=== PATIENT | male | born 1980 | race African-American/Black ===

== ENCOUNTER 2017-03-17 13:56 | Emergency (ER) | payer OTHER ==
[~2017-03-17] VITALS: Ht 180.3 cm; Wt 86.2 kg
[2017-03-17] VITALS (15 sets, daily range): BP systolic 120–130; BP diastolic 60–76
[2017-03-17] MEDS ORDERED: Haloperidol 5mg/ml Inj IM ONE (14:15)
[2017-03-17] MEDS ORDERED: LORazepam Inj 2mg/ml 1ml IM ONE (14:15)
[2017-03-17] MEDS ORDERED: DiphenhydrAMINE 50mg/ml Inj IM ONE (14:15)
[2017-03-17 14:23] LABS: BASOPHILS % (AUTO) 1.1 % (0.0-2.0); EOSINOPHILS % (AUTO) 2.5 % (0.0-3.0); LYMPHOCYTES % (AUTO) 31.2 % (20.0-45.0); MEAN CORPUSCULAR HEMOGLOBIN 30.6 PG (27.0-31.0); MEAN CORPUSCULAR HGB CONC 32.7 G/DL (32.0-36.0); MEAN CORPUSCULAR VOLUME 94 FL (80-99); MEAN PLATELET VOLUME 7.8 FL (6.5-10.1); MONOCYTES % (AUTO) 7.2 % (1.0-10.0); PLATELET COUNT 222 K/UL (150-450); RED BLOOD COUNT 4.37 M/UL (4.70-6.10); RED CELL DISTRIBUTION WIDTH 11.8 % (11.6-14.8); WHITE BLOOD COUNT 8.5 K/UL (4.8-10.8)
[2017-03-17 14:37] LABS: ALANINE AMINOTRANSFERASE 26 U/L (12-78); ALBUMIN/GLOBULIN RATIO 1.1 (1.0-2.7); ANION GAP 11 mmol/L (5-15); ASPARTATE AMINO TRANSFERASE 20 U/L (15-37); CALCIUM 8.4 MG/DL (8.5-10.1); CARBON DIOXIDE 26 MMOL/L (21-32); CHLORIDE 103 MMOL/L (98-107); CREATININE 0.9 MG/DL (0.55-1.30); GLOMERULAR FILTRATION RATE > 60 mL/min (>60); POTASSIUM 3.3 MMOL/L (3.5-5.1); SODIUM 139 MMOL/L (136-145); TOTAL PROTEIN 7.2 G/DL (6.4-8.2)
[2017-03-17 14:38] LABS: ACETAMINOPHEN < 2 MCG/ML (10-30); ALCOHOL < 3 mg/dL
--- NOTE | 2017-03-17 22:28 | Emergency Room Report ---
History of Present Illness General Chief Complaint: Altered Level of Consciousness Present Illness HPI 36-year-old male presents to the emergency department brought by ambulance accompanied by PD. pt. is verbally aggressive with flight of words and periods of refusal to talk. History of present illness and ROS is limited due to poor patient cooperation. PT states that they responded to a call of male that was showing his genitals and yelling jibberish our in public. PD states that pt. was not cooperative and did unexpectedly become mildly aggressive and attempted to resist being restrained and transported to ED. pt. will not answer questions , he yells unexpectedly and is not cooperative during MSE, HPI and ROS questioning. PD reports pt. was speaking fast and was diaphoretic upon their arrival. suspect drug intoxication. Allergies: Coded Allergies: UNABLE TO ASSESS (Unverified , 03/17/17) Patient History Past Medical History: see triage record Past Surgical History: none Pertinent Family History: none Reviewed Nursing Documentation: PMH: Agreed, PSxH: Agreed Nursing Documentation-PMH Past Medical History Deferred: Pt Cognitively Impaired Review of Systems All Other Systems: limited - Poor pt. cooperation. Altered mental status. Physical Exam Vital Signs Date Time Temp Pulse Resp B/P (MAP) Pulse Ox O2 Delivery O2 Flow Rate FiO2 03/17/17 13:45 98.4 98 16 137/94 98 Room Air Sp02 EP Interpretation: reviewed, normal General Appearance: other - Disheveled appearance, grossly contaminated clothes. Head: normocephalic, atraumatic Eyes: bilateral eye normal inspection, bilateral eye PERRL ENT: hearing grossly normal, normal voice Neck: full range of motion Respiratory: lungs clear, normal breath sounds, no respiratory distress, no wheezing, speaking full sentences Cardiovascular #1: regular rate, rhythm Gastrointestinal: non tender, soft Rectal: deferred Musculoskeletal: back normal, gait/station normal, normal range of motion Neurologic: alert, oriented x3, responsive, motor strength/tone normal, sensory intact, speech normal Psychiatric: no suicidal/homicidal ideation, other - Patient has flight of ideas, racing thoughts with rapid speech. Non-cooperative to questioning. no obvious hallucinations. Skin: normal color, no rash, warm/dry, other - grossly contaminated soles no obvious open wounds but moderate amount of dirt. Medical Decision Making PA Attestation Dr. Roberts is my supervising Physician whom patient management has been discussed with. Diagnostic Impression: Primary Impression: Altered level of consciousness Additional Impression: Behavioral change ER Course 36-year-old male presents to the emergency department brought by ambulance accompanied by PD. pt. is verbally aggressive with flight of words and periods of refusal to talk. History of present illness and ROS is limited due to poor patient cooperation. PT states that they responded to a call of male that was showing his genitals and yelling jibberish our in public. PD states that pt. was not cooperative and did unexpectedly become mildly aggressive and attempted to resist being restrained and transported to ED. pt. will not answer questions , he yells unexpectedly and is not cooperative during MSE, HPI and ROS questioning. PD reports pt. was speaking fast and was diaphoretic upon their arrival. suspect drug intoxication. Ddx considered but are not limited to OD, SI/HI, psychosis, UTI, intoxication Vital signs: are WNL, pt. is afebrile H&PE are most consistent with behavioral/mental health issue- Disheveled appearance, grossly contaminated clothes. Patient has flight of ideas, racing thoughts with rapid speech. Non-cooperative to questioning. no obvious hallucinations. ORDERS: -CBC, CMP: unremarkable other than mild anemia, and potassium of 3.4 -UA: negative for infection see results attached. -UDS: POSITIVE FOR THC and AMPHETAMINES -Salicylates and Acetaminophen - no acute intoxication. ED INTERVENTIONS: - Haldol 10mg IM -Benadryl 50mg IM - Ativan 2 mg IM - Risperdal [address] Vargas (Psych.) - Consulted and examined this pt. upon his arrival. recommended 2mg Risperdal, Haldol 10mg IM , Benadryl , and Ativan. - Pt. has been cleared and at this time determined not to be a danger to others or himself. pt. will be pharmacologically treated and can be d/c once clinically sober. DISPOSITION: awaiting clinical sobriety. pt. signed out to Dr. Zheng. Labs Test 03/17/17 14:10 03/17/17 14:15 Urine Opiates Screen Negative (NEGATIVE) Urine Barbiturates Screen Negative (NEGATIVE) Phencyclidine (PCP) Screen Negative (NEGATIVE) Urine Amphetamines Screen Positive (NEGATIVE) Urine Benzodiazepines Screen Negative (NEGATIVE) Urine Cocaine Screen Negative (NEGATIVE) Urine Marijuana (THC) Screen Positive (NEGATIVE) White Blood Count 8.5 K/UL (4.8-10.8) Red Blood Count 4.37 M/UL (4.70-6.10) Hemoglobin 13.4 G/DL (14.2-18.0) Hematocrit 40.9 % (42.0-52.0) Mean Corpuscular Volume 94 FL (80-99) Mean Corpuscular Hemoglobin 30.6 PG (27.0-31.0) Mean Corpuscular Hemoglobin Concent 32.7 G/DL (32.0-36.0) Red Cell Distribution Width 11.8 % (11.6-14.8) Platelet Count 222 K/UL (150-450) Mean Platelet Volume 7.8 FL (6.5-10.1) Neutrophils (%) (Auto) 58.0 % (45.0-75.0) Lymphocytes (%) (Auto) 31.2 % (20.0-45.0) Monocytes (%) (Auto) 7.2 % (1.0-10.0) Eosinophils (%) (Auto) 2.5 % (0.0-3.0) Basophils (%) (Auto) 1.1 % (0.0-2.0) Sodium Level 139 MMOL/L (136-145) Potassium Level 3.3 MMOL/L (3.5-5.1) Chloride Level 103 MMOL/L (98-107) Carbon Dioxide Level 26 MMOL/L (21-32) Anion Gap 11 mmol/L (5-15) Blood Urea Nitrogen 16 mg/dL (7-18) Creatinine 0.9 MG/DL (0.55-1.30) Estimat Glomerular Filtration Rate > 60 mL/min (>60) Glucose Level 81 MG/DL (74-106) Calcium Level 8.4 MG/DL (8.5-10.1) Total Bilirubin 0.3 MG/DL (0.2-1.0) Aspartate Amino Transf (AST/SGOT) 20 U/L (15-37) Alanine Aminotransferase (ALT/SGPT) 26 U/L (12-78) Alkaline Phosphatase 67 U/L (46-116) Total Protein 7.2 G/DL (6.4-8.2) Albumin 3.8 G/DL (3.4-5.0) Globulin 3.4 g/dL Albumin/Globulin Ratio 1.1 (1.0-2.7) Salicylates Level 1.3 ug/mL (2.8-20) Acetaminophen Level < 2 MCG/ML (10-30) Serum Alcohol < 3 mg/dL Last Vital Signs Date Time Temp Pulse Resp B/P (MAP) Pulse Ox O2 Delivery O2 Flow Rate FiO2 03/17/17 20:50 98.1 84 16 122/66 100 Room Air Disposition: HOME, SELF-CARE Condition: Stable Signed Out To: Dr. Zheng Physician Consult: Dr. Vragas ( Psych). Referrals: Joss SMALL,REFERRING (PCP) Patient Instructions: Chemical Dependency, Stimulant Use Disorder-Amphetamines Additional Instructions: Stop using drugs. Followup with [facility] mental health urgent care. Follow up with a Primary Care Provider in 3-5 days, even if your symptoms have resolved. --Please review list of primary care clinics, if you do not already have a primary care provider Return sooner to ED if new symptoms occur, or current symptoms become worse. - Please note that this Emergency Department Report was dictated using [employer] software developer technology software, occasionally this can lead to erroneous entry secondary to interpretation by the dictation equipment. [place] Mar 17, 2017 22:28
[2017-03-18 00:30] VITALS: BP 126/62
--- NOTE | 2017-03-18 23:47 | Consultation ---
History of Present Illness General Date patient seen: Mar 17, 2017 Chief Complaint: Altered Level of Consciousness Present Illness HPI 6-year-old male presents to the emergency department brought by ambulance accompanied by PD. pt. is verbally aggressive and disorganized. denied psych hx system pos for meth and mj. the pt was given antipsych and he cleared Allergies: Coded Allergies: UNABLE TO ASSESS (Unverified , 03/17/17) Patient History History Provided By: Patient Healthcare decision maker Resuscitation status Advanced Directive on File Review of Systems Psychiatric: Reports: prior hx, anxiety, depressed feelings Physical Exam General Appearance: confused, agitated Last 24 Hour Vital Signs Date Time Temp Pulse Resp B/P (MAP) Pulse Ox O2 Delivery O2 Flow Rate FiO2 03/18/17 00:30 98.4 78 14 126/62 100 Room Air Height (Feet): 5 Height (Inches): 11.00 Weight (Pounds): 190 Assessment/Plan Status: stable, progressing Assessment/Plan substance induced psychosis risperjosé miguel mcmullen and avni vance the pt stabilized Jeanna Vargas M.D. Mar 18, 2017 23:47
== END 2017-03-18 00:30 | disposition home or self-care (01) ==
LOC: EDBD 13:56 → EMR 14:29
DX: F19.959 Other psychoactive substance use, unspecified with psychoactive substance-induced psychotic disorder, unspecified (principal)
CPT/HCPCS: 36415; 80053; 80307; 80329; 85025; 96372; 99283; J1200; J1630